=== PATIENT | female | born 1990 | race African-American/Black ===

== ENCOUNTER 2016-03-08 07:13 | Inpatient (IN) | payer MEDICARE, MEDICAID ==
[~2016-03-08] VITALS: Ht 175.3 cm; Wt 113.0 kg
[~2016-03-08 07:13] MED LIST: OLAN10TA3 PO; VITAD1000 PO
[2016-03-08] MEDS ORDERED: LOPERAMIDE HCL 2 MG CAPSULE PO ONE (07:45)
[2016-03-08] MEDS ORDERED: IBUPROFEN 600 MG TABLET PO ONE (07:45)
[2016-03-08 07:54] LABS: BASOPHILS % (AUTO) 0.5 % (0.0-2.0); EOSINOPHILS % (AUTO) 0.1 % (1.0-6.0); HEMATOCRIT 35.6 % (36-46); HEMOGLOBIN 11.8 g/dL (12.0-16.0); LYMPHOCYTES # (AUTO) 1.4 K/uL (1.0-4.8); LYMPHOCYTES % (AUTO) 9.8 % (22.0-44.0); MEAN CORPUSCULAR HEMOGLOBIN 28.6 pg (26.0-34.0); MEAN CORPUSCULAR HGB CONC 33.2 G/dL (31.0-37.0); MEAN CORPUSCULAR VOLUME 86 fL (80-100); MONOCYTES # (AUTO) 0.9 K/uL (0.1-1.0); MONOCYTES % (AUTO) 6.4 % (2.0-9.0); NEUTROPHILS # (AUTO) 12.1 K/uL (1.8-7.7); NEUTROPHILS % (AUTO) 83.2 % (40.0-70.0); PLATELET COUNT (AUTO) 446 K/uL (150-450); RED BLOOD CELL COUNT(AUTO) 4.13 MIL/uL (4.00-5.20); RED CELL DISTRIBUTION WIDTH 14.7 % (11.5-14.5); WHITE BLOOD COUNT (AUTO) 14.6 K/uL (4.5-11.0)
[2016-03-08 08:07] LABS: ANION GAP 11 mmol/L (8-16); CALCIUM, TOTAL 8.5 mg/dL (8.8-10.5); CARBON DIOXIDE 25 mmol/L (22-29); CHLORIDE 98 mmol/L (98-107); CREATININE 0.98 mg/dL (0.60-1.30); GLOMERULAR FILTR. RATE CALC > 60 mL/min (>60); POTASSIUM 3.2 mmol/L (3.5-5.1); SODIUM SERUM 134 mmol/L (136-145); UREA NITROGEN, BLOOD 6 mg/dL (7-18)
[2016-03-08 08:13] LABS: ALANINE AMINOTRANSFERASE 27 U/L (12-78); ALBUMIN 2.8 g/dL (3.4-5.0); ASPARTATE AMINOTRANSFERASE 19 U/L (15-37); BILIRUBIN,TOTAL 0.5 mg/dL (0.1-1.0); TOTAL PROTEIN, SERUM 7.6 g/dL (6.4-8.2)
[2016-03-08 08:42] LABS: APPEARANCE,URINE CLOUDY (CLEAR); GLUCOSE, URINE (UA) NEGATIVE (NEGATIVE); KETONES,URINE 40 mg/dL (NEGATIVE); LEUKOCYTE ESTERASE ,URINE TRACE (NEGATIVE); PROTEIN,URINE SEE CONFIRM (NEGATIVE)
[2016-03-08 08:50] LABS: OCCULT BLOOD,URINE SMALL (NEGATIVE); SQUAMOUS EPITHELIAL CELL,UR Many /LPF (None Seen)
[2016-03-08 08:51] LABS: COARSE GRANULAR CASTS,URINE 0-2 /LPF (None Seen); FINE GRANULAR CASTS,URINE 0-2 /LPF (None Seen); SULFOSALICYLIC ACID,URINE 1+ (Negative)
[2016-03-08] MEDS ORDERED: LORazepam 2 MG TABLET PO ONE (09:45)
[2016-03-08] MEDS ORDERED: NITROFURANTOIN/NITROFURAN MAC 100 MG CAPSULE [MACROBID] PO ONE (09:45)
[2016-03-08] MEDS ORDERED: RisperiDONE 1 MG TABLET PO ONE (09:45)
[2016-03-08] MEDS ORDERED: LORazepam 2 MG TABLET PO PRN (10:15)
[2016-03-08] MEDS ORDERED: ZOLPIDEM TARTRATE 10 MG TABLET PO PRN (10:15)
[2016-03-08] MEDS ORDERED: HALOPERIDOL 5 MG TABLET PO PRN (10:15)
[2016-03-08] MEDS ORDERED: INFLUENZA VIRUS VACCINE QVS 2016-17 (3YR+)/PF 60 MCG/0.5 ML SYRINGE IM ONE (12:00)
[2016-03-08 12:41] VITALS: BP 105/67
[2016-03-08 17:19] VITALS: BP 102/78
[2016-03-08] MEDS ORDERED: POTASSIUM CHLORIDE 20 MEQ ER TABLET PO ONE (18:15)
[2016-03-08] MEDS: OLANZapine 10 MG TABLET PO SCH (20:43)
[2016-03-09 08:02] VITALS: BP 116/68
[2016-03-09] MEDS: NITROFURANTOIN/NITROFURAN MAC 100 MG CAPSULE [MACROBID] PO SCH ×2 (08:23→17:00)
[2016-03-09 17:10] VITALS: BP 103/60
[2016-03-09] MEDS: OLANZapine 10 MG TABLET PO SCH (20:14)
[2016-03-09] MEDS ORDERED: PETROLATUM,WHITE 71 GM JELLY TP PRN (21:00)
[2016-03-09] MEDS ORDERED: ONDANSETRON HCL 4 MG TABLET PO PRN (21:00)
[2016-03-09] MEDS ORDERED: BENZOCAINE/MENTHOL LOZENGE [8 LOZENGES/PACKET] MM PRN (21:00)
[2016-03-09] MEDS ORDERED: ACETAMINOPHEN 325 MG TABLET PO PRN (21:00)
[2016-03-09] MEDS ORDERED: LOPERAMIDE HCL 2 MG CAPSULE PO PRN (21:00)
[2016-03-09] MEDS ORDERED: MAGNESIUM HYDROXIDE SUSPENSION 30 ML UDCUP PO PRN (21:00)
[2016-03-09] MEDS ORDERED: MAG HYDROX/AL HYDROX/SIMETH ES 30 ML SUSPENSION UDCUP PO PRN (21:00)
[2016-03-09] MEDS ORDERED: ALBUTEROL SULFATE HFA 90 MCG/PUFF 8 GM INHALER IH PRN (21:00)
[2016-03-09] MEDS ORDERED: BACITRACIN 28.4 GM OINTMENT TP PRN (21:00)
[2016-03-09] MEDS ORDERED: CloNIDine HCL 0.1 MG TABLET PO PRN (21:00)
[2016-03-10] MEDS: NITROFURANTOIN/NITROFURAN MAC 100 MG CAPSULE [MACROBID] PO SCH ×2 (08:20→16:11)
[2016-03-10] MEDS: CHOLECALCIFEROL (VIT D3) 1,000 UNITS TABLET PO SCH (08:20)
[2016-03-10 13:30] VITALS: BP 107/50
[2016-03-10] MEDS: OLANZapine 10 MG TABLET PO SCH (20:30)
[2016-03-11 08:02] VITALS: BP 106/53
[2016-03-11] MEDS: CHOLECALCIFEROL (VIT D3) 1,000 UNITS TABLET PO SCH (09:00)
[2016-03-11] MEDS: NITROFURANTOIN/NITROFURAN MAC 100 MG CAPSULE [MACROBID] PO SCH ×2 (09:00→16:33)
[2016-03-11] MEDS: OLANZapine 10 MG TABLET PO SCH (20:04)
[2016-03-12] MEDS: CHOLECALCIFEROL (VIT D3) 1,000 UNITS TABLET PO SCH (08:32)
[2016-03-12] MEDS: NITROFURANTOIN/NITROFURAN MAC 100 MG CAPSULE [MACROBID] PO SCH ×2 (08:32→15:50)
[2016-03-12] MEDS: OLANZapine 10 MG TABLET PO SCH (20:09)
[2016-03-13] MEDS: NITROFURANTOIN/NITROFURAN MAC 100 MG CAPSULE [MACROBID] PO SCH ×2 (08:54→16:32)
[2016-03-13] MEDS: CHOLECALCIFEROL (VIT D3) 1,000 UNITS TABLET PO SCH (08:54)
[2016-03-13 12:57] VITALS: BP 102/62
[2016-03-13 16:38] VITALS: BP 105/70
[2016-03-13] MEDS: OLANZapine 10 MG TABLET PO SCH (20:23)
[2016-03-14 08:00] VITALS: BP 118/52
[2016-03-14] MEDS: NITROFURANTOIN/NITROFURAN MAC 100 MG CAPSULE [MACROBID] PO SCH ×2 (09:48→16:24)
[2016-03-14] MEDS: CHOLECALCIFEROL (VIT D3) 1,000 UNITS TABLET PO SCH (09:48)
[2016-03-14] MEDS: IBUPROFEN 600 MG TABLET PO PRN (20:08)
[2016-03-14] MEDS: OLANZapine 10 MG TABLET PO SCH (20:28)
[2016-03-15 08:00] VITALS: BP 103/59
[2016-03-15] MEDS: CHOLECALCIFEROL (VIT D3) 1,000 UNITS TABLET PO SCH (08:02)
[2016-03-15] MEDS: NITROFURANTOIN/NITROFURAN MAC 100 MG CAPSULE [MACROBID] PO SCH ×2 (08:02→16:46)
[2016-03-15 16:50] VITALS: BP 98/50
[2016-03-15] MEDS: IBUPROFEN 600 MG TABLET PO PRN (16:53)
[2016-03-15] MEDS: OLANZapine 10 MG TABLET PO SCH (20:04)
[2016-03-16 02:34] VITALS: BP 112/76
[2016-03-16] MEDS: IBUPROFEN 600 MG TABLET PO PRN (06:19)
[2016-03-16 08:02] VITALS: BP 102/65
[2016-03-16] MEDS: CHOLECALCIFEROL (VIT D3) 1,000 UNITS TABLET PO SCH (08:22)
[2016-03-16 16:29] VITALS: BP 103/63
[2016-03-16] MEDS: OLANZapine 10 MG TABLET PO SCH (20:29)
[2016-03-17 08:00] VITALS: BP 97/72
[2016-03-17] MEDS: CHOLECALCIFEROL (VIT D3) 1,000 UNITS TABLET PO SCH (08:27)
[2016-03-17 16:40] VITALS: BP 122/76
[2016-03-17] MEDS: OLANZapine 10 MG TABLET PO SCH (20:09)
[2016-03-18] MEDS: CHOLECALCIFEROL (VIT D3) 1,000 UNITS TABLET PO SCH (08:20)
[2016-03-18 11:00] VITALS: BP 117/61
[2016-03-18 16:59] VITALS: BP 121/76
[2016-03-18] MEDS: OLANZapine 10 MG TABLET PO SCH (20:14)
[2016-03-19 01:08] VITALS: BP 127/76
[2016-03-19] MEDS: CHOLECALCIFEROL (VIT D3) 1,000 UNITS TABLET PO SCH (11:10)
[2016-03-19 17:12] VITALS: BP 116/77
[2016-03-19] MEDS: OLANZapine 10 MG TABLET PO SCH (20:47)
[2016-03-19 22:35] VITALS: BP 117/62
[2016-03-19] MEDS: IBUPROFEN 600 MG TABLET PO PRN (22:35)
[2016-03-20] MEDS: CHOLECALCIFEROL (VIT D3) 1,000 UNITS TABLET PO SCH ×2 (08:42→09:00)
[2016-03-20 16:27] VITALS: BP 104/72
[2016-03-20 19:52] VITALS: BP 108/80
[2016-03-20] MEDS: IBUPROFEN 600 MG TABLET PO PRN (20:02)
[2016-03-20] MEDS: OLANZapine 10 MG TABLET PO SCH (20:07)
[2016-03-21] MEDS: CHOLECALCIFEROL (VIT D3) 1,000 UNITS TABLET PO SCH (08:53)
== END 2016-03-21 14:54 | disposition home or self-care (01) | DRG 885 ==
LOC: EMS 07:16 → 3EX 10:59
DX: F25.0 Schizoaffective disorder, bipolar type (principal); A41.9 Sepsis, unspecified organism; N39.0 Urinary tract infection, site not specified; E87.1 Hypo-osmolality and hyponatremia; R45.851 Suicidal ideations; E55.9 Vitamin D deficiency, unspecified; E66.9 Obesity, unspecified; E87.6 Hypokalemia; F11.90 Opioid use, unspecified, uncomplicated; F15.10 Other stimulant abuse, uncomplicated; F17.210 Nicotine dependence, cigarettes, uncomplicated; F41.9 Anxiety disorder, unspecified; K59.00 Constipation, unspecified; K30 Functional dyspepsia; M19.90 Unspecified osteoarthritis, unspecified site; Z91.14 Patient's other noncompliance with medication regimen; Z88.8 Allergy status to other drugs, medicaments and biological substances; Z79.899 Other long term (current) drug therapy; Z98.890 Other specified postprocedural states; Z71.6 Tobacco abuse counseling; Z68.36 Body mass index [BMI] 36.0-36.9, adult; Z28.21 Immunization not carried out because of patient refusal
CPT/HCPCS: 87086; 99285; G0480; Q0162

== ENCOUNTER 2016-05-02 04:14 | Emergency (ER) | payer MEDICARE, OTHER ==
[~2016-05-02] VITALS: Ht 172.7 cm; Wt 113.0 kg
[2016-05-02 08:06] LABS: BASOPHILS % (AUTO) 0.5 % (0.0-2.0); EOSINOPHILS % (AUTO) 1.3 % (1.0-6.0); HEMATOCRIT 35.8 % (36-46); HEMOGLOBIN 11.7 g/dL (12.0-16.0); LYMPHOCYTES # (AUTO) 2.4 K/uL (1.0-4.8); LYMPHOCYTES % (AUTO) 27.8 % (22.0-44.0); MEAN CORPUSCULAR HEMOGLOBIN 28.1 pg (26.0-34.0); MEAN CORPUSCULAR HGB CONC 32.7 G/dL (31.0-37.0); MEAN CORPUSCULAR VOLUME 86 fL (80-100); MONOCYTES # (AUTO) 0.6 K/uL (0.1-1.0); MONOCYTES % (AUTO) 6.8 % (2.0-9.0); NEUTROPHILS # (AUTO) 5.6 K/uL (1.8-7.7); NEUTROPHILS % (AUTO) 63.6 % (40.0-70.0); PLATELET COUNT (AUTO) 444 K/uL (150-450); RED BLOOD CELL COUNT(AUTO) 4.17 MIL/uL (4.00-5.20); RED CELL DISTRIBUTION WIDTH 15.6 % (11.5-14.5); WHITE BLOOD COUNT (AUTO) 8.8 K/uL (4.5-11.0)
[2016-05-02 08:14] LABS: ANION GAP 7 mmol/L (8-16); CARBON DIOXIDE 30 mmol/L (22-29); CHLORIDE 107 mmol/L (98-107); CREATININE 0.82 mg/dL (0.60-1.30); GLOMERULAR FILTR. RATE CALC > 60 mL/min (>60); SODIUM SERUM 144 mmol/L (136-145); UREA NITROGEN, BLOOD 11 mg/dL (7-18)
[2016-05-02 08:20] LABS: ALANINE AMINOTRANSFERASE 22 U/L (12-78); ALBUMIN 3.4 g/dL (3.4-5.0); ASPARTATE AMINOTRANSFERASE 16 U/L (15-37); BILIRUBIN,TOTAL 0.2 mg/dL (0.1-1.0); TOTAL PROTEIN, SERUM 8.4 g/dL (6.4-8.2)
[2016-05-02] MEDS ORDERED: ONDANSETRON HCL 4 MG TABLET PO ONE (08:30)
[2016-05-02] MEDS ORDERED: CAMPHOR/MENTHOL/PHENOL 10 GM OINTMENT TP ONE (08:30)
[2016-05-02 09:14] LABS: INFLUENZA TYPE B NEGATIVE FOR TYPE B (NEGATIVE)
[2016-05-02 09:30] VITALS: BP 133/73
[2016-08-17] MEDS ORDERED: NALT50 PO (13:26)
== END 2016-05-02 10:13 | disposition home or self-care (01) ==
LOC: EMS 04:16
DX: J06.9 Acute upper respiratory infection, unspecified (principal); F25.9 Schizoaffective disorder, unspecified; F41.9 Anxiety disorder, unspecified; F32.9 Major depressive disorder, single episode, unspecified; F17.210 Nicotine dependence, cigarettes, uncomplicated; F11.90 Opioid use, unspecified, uncomplicated; F19.90 Other psychoactive substance use, unspecified, uncomplicated; Z88.8 Allergy status to other drugs, medicaments and biological substances
CPT/HCPCS: 36415; 80053; 85025; 87804; 99284; G0480; Q0162

== ENCOUNTER 2016-07-03 18:51 | Emergency (ER) | payer MEDICARE, OTHER ==
[~2016-07-03] VITALS: Ht 175.3 cm; Wt 118.0 kg
[2016-07-03 20:40] LABS: BASOPHILS % (AUTO) 0.5 % (0.0-2.0); EOSINOPHILS % (AUTO) 2.2 % (1.0-6.0); HEMATOCRIT 34.2 % (36-46); LYMPHOCYTES # (AUTO) 2.6 K/uL (1.0-4.8); LYMPHOCYTES % (AUTO) 26.7 % (22.0-44.0); MEAN CORPUSCULAR HEMOGLOBIN 27.6 pg (26.0-34.0); MEAN CORPUSCULAR HGB CONC 32.3 G/dL (31.0-37.0); MEAN CORPUSCULAR VOLUME 85 fL (80-100); MONOCYTES # (AUTO) 0.8 K/uL (0.1-1.0); MONOCYTES % (AUTO) 7.9 % (2.0-9.0); NEUTROPHILS # (AUTO) 6.1 K/uL (1.8-7.7); NEUTROPHILS % (AUTO) 62.7 % (40.0-70.0); PLATELET COUNT (AUTO) 412 K/uL (150-450); RED BLOOD CELL COUNT(AUTO) 4.01 MIL/uL (4.00-5.20); RED CELL DISTRIBUTION WIDTH 15.9 % (11.5-14.5); WHITE BLOOD COUNT (AUTO) 9.7 K/uL (4.5-11.0)
[2016-07-03 20:50] LABS: ANION GAP 9 mmol/L (8-16); CALCIUM, TOTAL 7.9 mg/dL (8.8-10.5); CARBON DIOXIDE 27 mmol/L (22-29); CHLORIDE 106 mmol/L (98-107); CREATININE 0.85 mg/dL (0.60-1.30); GLOMERULAR FILTR. RATE CALC > 60 mL/min (>60); POTASSIUM 3.7 mmol/L (3.5-5.1); SODIUM SERUM 142 mmol/L (136-145); UREA NITROGEN, BLOOD 8 mg/dL (7-18)
[2016-07-03 20:56] LABS: ALANINE AMINOTRANSFERASE 31 U/L (12-78); ALBUMIN 2.9 g/dL (3.4-5.0); ASPARTATE AMINOTRANSFERASE 21 U/L (15-37); BILIRUBIN,TOTAL 0.2 mg/dL (0.1-1.0); TOTAL PROTEIN, SERUM 7.3 g/dL (6.4-8.2)
[2016-07-03] MEDS ORDERED: OLANZapine 5 MG TABLET PO ONE (23:45)
[2016-07-03 23:48] VITALS: BP 132/63
== END 2016-07-03 23:54 | disposition home or self-care (01) ==
LOC: EMS 18:54
DX: F25.9 Schizoaffective disorder, unspecified (principal); F15.10 Other stimulant abuse, uncomplicated; F32.9 Major depressive disorder, single episode, unspecified; F11.90 Opioid use, unspecified, uncomplicated; F17.210 Nicotine dependence, cigarettes, uncomplicated; Z76.0 Encounter for issue of repeat prescription; Z88.8 Allergy status to other drugs, medicaments and biological substances
CPT/HCPCS: 36415; 80053; 80307; 84703; 85025; 99284; G0480

== ENCOUNTER 2016-07-04 08:29 | Inpatient (IN) | payer MEDICARE, MEDICAID ==
[~2016-07-04] VITALS: Ht 175.3 cm; Wt 121.8 kg
[2016-07-04 10:31] LABS: BASOPHILS % (AUTO) 0.4 % (0.0-2.0); EOSINOPHILS % (AUTO) 2.8 % (1.0-6.0); HEMATOCRIT 34.8 % (36-46); HEMOGLOBIN 11.2 g/dL (12.0-16.0); LYMPHOCYTES # (AUTO) 2.5 K/uL (1.0-4.8); LYMPHOCYTES % (AUTO) 29.8 % (22.0-44.0); MEAN CORPUSCULAR HEMOGLOBIN 27.6 pg (26.0-34.0); MEAN CORPUSCULAR HGB CONC 32.1 G/dL (31.0-37.0); MEAN CORPUSCULAR VOLUME 86 fL (80-100); MONOCYTES # (AUTO) 0.6 K/uL (0.1-1.0); MONOCYTES % (AUTO) 6.7 % (2.0-9.0); NEUTROPHILS % (AUTO) 60.3 % (40.0-70.0); PLATELET COUNT (AUTO) 423 K/uL (150-450); RED BLOOD CELL COUNT(AUTO) 4.05 MIL/uL (4.00-5.20); RED CELL DISTRIBUTION WIDTH 15.7 % (11.5-14.5); WHITE BLOOD COUNT (AUTO) 8.4 K/uL (4.5-11.0)
[2016-07-04 10:40] LABS: ANION GAP 5 mmol/L (8-16); CALCIUM, TOTAL 8.3 mg/dL (8.8-10.5); CARBON DIOXIDE 31 mmol/L (22-29); CHLORIDE 103 mmol/L (98-107); CREATININE 0.78 mg/dL (0.60-1.30); GLOMERULAR FILTR. RATE CALC > 60 mL/min (>60); POTASSIUM 3.8 mmol/L (3.5-5.1); SODIUM SERUM 139 mmol/L (136-145); UREA NITROGEN, BLOOD 7 mg/dL (7-18)
[2016-07-04 10:46] LABS: ALANINE AMINOTRANSFERASE 37 U/L (12-78); ASPARTATE AMINOTRANSFERASE 24 U/L (15-37); BILIRUBIN,TOTAL 0.4 mg/dL (0.1-1.0); TOTAL PROTEIN, SERUM 7.7 g/dL (6.4-8.2)
[2016-07-04] MEDS ORDERED: HALOPERIDOL 5 MG TABLET PO PRN (11:00)
[2016-07-04] MEDS ORDERED: LORazepam 2 MG TABLET PO PRN (11:00)
[2016-07-04] MEDS ORDERED: ZOLPIDEM TARTRATE 10 MG TABLET PO PRN (11:00)
[2016-07-04 16:39] VITALS: BP 110/55
[2016-07-05 00:58] VITALS: BP 92/56
[2016-07-05] MEDS ORDERED: MAGNESIUM HYDROXIDE SUSPENSION 30 ML UDCUP PO PRN (08:45)
[2016-07-05] MEDS ORDERED: BENZOCAINE/MENTHOL LOZENGE MM PRN (08:45)
[2016-07-05] MEDS ORDERED: BACITRACIN 28.4 GM OINTMENT TP PRN (08:45)
[2016-07-05] MEDS ORDERED: IBUPROFEN 600 MG TABLET PO PRN (08:45)
[2016-07-05] MEDS ORDERED: LOPERAMIDE HCL 2 MG CAPSULE PO PRN (08:45)
[2016-07-05] MEDS ORDERED: ONDANSETRON HCL 4 MG TABLET PO PRN (08:45)
[2016-07-05] MEDS ORDERED: CloNIDine HCL 0.1 MG TABLET PO PRN (08:45)
[2016-07-05] MEDS ORDERED: PETROLATUM,WHITE 71 GM JELLY TP PRN (08:45)
[2016-07-05] MEDS ORDERED: ALBUTEROL SULFATE HFA 90 MCG/PUFF 8 GM INHALER IH PRN (08:45)
[2016-07-05] MEDS ORDERED: ACETAMINOPHEN 325 MG TABLET PO PRN (08:45)
[2016-07-05] MEDS ORDERED: MAG HYDROX/AL HYDROX/SIMETH ES 30 ML SUSPENSION UDCUP PO PRN (08:45)
[2016-07-05 08:47] LABS: BASOPHILS % (AUTO) 0.7 % (0.0-2.0); EOSINOPHILS % (AUTO) 2.9 % (1.0-6.0); HEMATOCRIT 32.5 % (36-46); HEMOGLOBIN 10.4 g/dL (12.0-16.0); LYMPHOCYTES # (AUTO) 3.1 K/uL (1.0-4.8); LYMPHOCYTES % (AUTO) 41.4 % (22.0-44.0); MEAN CORPUSCULAR HEMOGLOBIN 27.8 pg (26.0-34.0); MEAN CORPUSCULAR HGB CONC 32.1 G/dL (31.0-37.0); MEAN CORPUSCULAR VOLUME 87 fL (80-100); MONOCYTES # (AUTO) 0.6 K/uL (0.1-1.0); MONOCYTES % (AUTO) 8.1 % (2.0-9.0); NEUTROPHILS # (AUTO) 3.5 K/uL (1.8-7.7); NEUTROPHILS % (AUTO) 46.9 % (40.0-70.0); PLATELET COUNT (AUTO) 393 K/uL (150-450); RED BLOOD CELL COUNT(AUTO) 3.75 MIL/uL (4.00-5.20); RED CELL DISTRIBUTION WIDTH 15.6 % (11.5-14.5); WHITE BLOOD COUNT (AUTO) 7.5 K/uL (4.5-11.0)
[2016-07-05 09:00] LABS: CHOL/HDL RATIO 2.6 (3.9-5.7)
[2016-07-05] MEDS: CHOLECALCIFEROL (VIT D3) 1,000 UNITS TABLET PO SCH (09:00)
[2016-07-05 16:18] VITALS: BP 100/61
[2016-07-05] MEDS: OLANZapine 10 MG TABLET PO SCH (21:01)
[2016-07-06 03:39] VITALS: BP 102/63
[2016-07-06] MEDS: CHOLECALCIFEROL (VIT D3) 1,000 UNITS TABLET PO SCH (08:26)
[2016-07-06 08:40] VITALS: BP 112/64
[2016-07-06 16:10] VITALS: BP 102/62
[2016-07-06] MEDS: OLANZapine 10 MG TABLET PO SCH (20:47)
[2016-07-07 08:52] VITALS: BP 122/71
[2016-07-07] MEDS: CHOLECALCIFEROL (VIT D3) 1,000 UNITS TABLET PO SCH (08:53)
[2016-07-07 16:09] VITALS: BP 100/60
== END 2016-07-07 18:00 | disposition home or self-care (01) | DRG 885 ==
LOC: EEVIPCON 08:29 → EMS 08:34 → B2X 11:13
PROVIDERS: ADMIT Psychiatry & Neurology Child & Adolescent Psychiatry; ATTEND Psychiatry & Neurology Child & Adolescent Psychiatry
DX: F25.1 Schizoaffective disorder, depressive type (principal); R45.851 Suicidal ideations; F15.20 Other stimulant dependence, uncomplicated; M19.90 Unspecified osteoarthritis, unspecified site; F32.9 Major depressive disorder, single episode, unspecified; F12.10 Cannabis abuse, uncomplicated; F41.9 Anxiety disorder, unspecified; E66.9 Obesity, unspecified; K59.00 Constipation, unspecified; E55.9 Vitamin D deficiency, unspecified; F19.10 Other psychoactive substance abuse, uncomplicated; G47.00 Insomnia, unspecified; F17.200 Nicotine dependence, unspecified, uncomplicated; Z68.39 Body mass index [BMI] 39.0-39.9, adult; Z71.51 Drug abuse counseling and surveillance of drug abuser; Z71.6 Tobacco abuse counseling; Z91.14 Patient's other noncompliance with medication regimen
CPT/HCPCS: 99285; G0480

== ENCOUNTER 2016-08-15 03:44 | Inpatient (IN) | payer MEDICARE, MEDICAID ==
[~2016-08-15] VITALS: Ht 170.2 cm; Wt 110.4 kg
[2016-08-15 04:49] LABS: BASOPHILS # (AUTO) 0.01 K/uL (0.00-0.20); BASOPHILS % (AUTO) 0.1 % (0.0-2.0); EOSINOPHILS # (AUTO) 0.06 K/uL (0.00-0.70); EOSINOPHILS % (AUTO) 0.54 % (1.0-6.0); HEMATOCRIT 33.5 % (36-46); LYMPHOCYTES # (AUTO) 2.6 K/uL (1.0-4.8); MEAN CORPUSCULAR VOLUME 85 fL (80-100); MONOCYTES # (AUTO) 0.8 K/uL (0.1-1.0); MONOCYTES % (AUTO) 6.9 % (2.0-9.0); NEUTROPHILS # (AUTO) 7.5 K/uL (1.8-7.7); NEUTROPHILS % (AUTO) 68.5 % (40.0-70.0); PLATELET COUNT (AUTO) 388 K/uL (150-450); RED BLOOD CELL COUNT(AUTO) 3.95 MIL/uL (4.00-5.20); RED CELL DISTRIBUTION WIDTH 15.9 % (11.5-14.5); WHITE BLOOD COUNT (AUTO) 10.9 K/uL (4.5-11.0)
[2016-08-15 04:58] LABS: ANION GAP 12 mmol/L (8-16); CALCIUM, TOTAL 9.1 mg/dL (8.8-10.5); CARBON DIOXIDE 23 mmol/L (22-29); CHLORIDE 103 mmol/L (98-107); CREATININE 1.05 mg/dL (0.60-1.30); GLOMERULAR FILTR. RATE CALC > 60 mL/min (>60); POTASSIUM 3.8 mmol/L (3.5-5.1); SODIUM SERUM 138 mmol/L (136-145); UREA NITROGEN, BLOOD 9 mg/dL (7-18)
[2016-08-15 05:04] LABS: ALANINE AMINOTRANSFERASE 26 U/L (12-78); ALBUMIN 3.8 g/dL (3.4-5.0); ASPARTATE AMINOTRANSFERASE 27 U/L (15-37); BILIRUBIN,TOTAL 0.6 mg/dL (0.1-1.0)
[2016-08-15] MEDS ORDERED: OLANZapine 5 MG TABLET PO ONE (05:15)
[2016-08-15] MEDS ORDERED: OLANZapine 5 MG RAPDIS TABLET PO PRN (06:00)
[2016-08-15] MEDS ORDERED: ZOLPIDEM TARTRATE 10 MG TABLET PO PRN (06:00)
[2016-08-15] MEDS ORDERED: LORazepam 2 MG TABLET PO PRN (06:00)
[2016-08-15 06:19] LABS: CHOL/HDL RATIO 2.2 (3.9-5.7); THYROID STIMULATING HORMONE 1.02 uIU/mL (0.36-3.74)
[2016-08-15] MEDS ORDERED: CloNIDine HCL 0.1 MG TABLET PO PRN (09:30)
[2016-08-15] MEDS ORDERED: BENZOCAINE/MENTHOL LOZENGE [8 LOZENGES/PACKET] MM PRN ×2 (09:30→11:45)
[2016-08-15] MEDS ORDERED: PETROLATUM,WHITE 71 GM JELLY TP PRN (09:30)
[2016-08-15] MEDS ORDERED: BACITRACIN 28.4 GM OINTMENT TP PRN (09:30)
[2016-08-15] MEDS ORDERED: MAG HYDROX/AL HYDROX/SIMETH ES 30 ML SUSPENSION UDCUP PO PRN ×2 (09:30→11:45)
[2016-08-15] MEDS ORDERED: ONDANSETRON HCL 4 MG TABLET PO PRN (09:30)
[2016-08-15] MEDS ORDERED: IBUPROFEN 600 MG TABLET PO PRN (09:30)
[2016-08-15] MEDS ORDERED: ACETAMINOPHEN 325 MG TABLET PO PRN ×2 (09:30→11:45)
[2016-08-15] MEDS ORDERED: ALBUTEROL SULFATE HFA 90 MCG/PUFF 8 GM INHALER IH PRN (09:30)
[2016-08-15] MEDS ORDERED: LOPERAMIDE HCL 2 MG CAPSULE PO PRN ×2 (09:30→11:45)
[2016-08-15] MEDS ORDERED: MAGNESIUM HYDROXIDE SUSPENSION 30 ML UDCUP PO PRN ×2 (09:30→11:45)
[2016-08-15] MEDS ORDERED: HydrOXYzine PAMOATE 50 MG CAPSULE PO PRN (11:45)
[2016-08-15] MEDS ORDERED: PROMETHAZINE HCL 25 MG TABLET PO PRN (11:45)
[2016-08-15] MEDS ORDERED: TUBERCULIN, PURIFIED PROTEIN DERIVATIVE 5 TU/0.1 ML SYG ID ONE (11:45)
[2016-08-15] MEDS ORDERED: GuaiFENesin/D-METHORPHAN [SUGAR-FREE] 200-20MG/10 ML SYRUP UDCUP PO PRN (11:45)
[2016-08-15 13:49] VITALS: BP 125/73
[2016-08-15 18:00] VITALS: BP 132/75
[2016-08-15] MEDS: THIAMINE HCL 100 MG TABLET PO SCH (21:16)
[2016-08-15] MEDS: OLANZapine 5 MG RAPDIS TABLET PO SCH (21:17)
[2016-08-16] MEDS: THIAMINE HCL 100 MG TABLET PO SCH ×2 (09:32→17:01)
[2016-08-16] MEDS: MULTIVITAMINS WITH MINERALS, THERAPEUTIC TABLET PO SCH (09:33)
[2016-08-16] MEDS: CHOLECALCIFEROL (VIT D3) 1,000 UNITS TABLET PO SCH (09:33)
[2016-08-16] MEDS: NALTREXONE HCL 50 MG TABLET PO SCH (09:33)
[2016-08-16] MEDS: FOLIC ACID 1 MG TABLET PO SCH (09:34)
[2016-08-16 09:35] VITALS: BP 112/68
[2016-08-16 16:47] VITALS: BP 110/66
[2016-08-16] MEDS: OLANZapine 5 MG RAPDIS TABLET PO SCH (21:10)
[2016-08-17] MEDS: FERROUS SULFATE 325 MG EC TABLET PO SCH (06:57)
[2016-08-17 09:21] VITALS: BP 102/56
[2016-08-17] MEDS: FOLIC ACID 1 MG TABLET PO SCH (10:58)
[2016-08-17] MEDS: CHOLECALCIFEROL (VIT D3) 1,000 UNITS TABLET PO SCH (10:58)
[2016-08-17] MEDS: THIAMINE HCL 100 MG TABLET PO SCH ×2 (10:58→17:30)
[2016-08-17] MEDS: NALTREXONE HCL 50 MG TABLET PO SCH (10:58)
[2016-08-17] MEDS: MULTIVITAMINS WITH MINERALS, THERAPEUTIC TABLET PO SCH (10:58)
[2016-08-17] MEDS ORDERED: FERR-89 PO (13:23)
[2016-08-17] MEDS ORDERED: VITAD1000 PO (13:23)
[2016-08-17] MEDS ORDERED: OLAN10TA6 PO (13:25)
[2016-08-17] MEDS ORDERED: NALT50 PO ×2 (13:26→16:18)
[2016-08-17] MEDS ORDERED: OLAN5Z PO (16:18)
[2016-08-17 20:49] VITALS: BP 94/50
[2016-08-17] MEDS ORDERED: OLANZapine 10 MG RAPDIS TABLET PO SCH (21:00)
[2016-08-18] MEDS: FERROUS SULFATE 325 MG EC TABLET PO SCH (06:54)
[2016-08-18] MEDS: MULTIVITAMINS WITH MINERALS, THERAPEUTIC TABLET PO SCH (09:40)
[2016-08-18] MEDS: CHOLECALCIFEROL (VIT D3) 1,000 UNITS TABLET PO SCH (09:40)
[2016-08-18] MEDS: FOLIC ACID 1 MG TABLET PO SCH (09:41)
[2016-08-18] MEDS: THIAMINE HCL 100 MG TABLET PO SCH (09:41)
[2016-08-18] MEDS: NALTREXONE HCL 50 MG TABLET PO SCH (09:41)
== END 2016-08-18 11:30 | disposition home or self-care (01) | DRG 750 ==
LOC: EMS 03:45 → 3EI 06:00
PROVIDERS: ADMIT Psychiatry & Neurology Psychiatry; ATTEND Psychiatry & Neurology Psychiatry
DX: F20.0 Paranoid schizophrenia (principal); Z91.19 Patient's noncompliance with other medical treatment and regimen; F15.10 Other stimulant abuse, uncomplicated; E66.9 Obesity, unspecified; F17.210 Nicotine dependence, cigarettes, uncomplicated; K59.00 Constipation, unspecified; G47.00 Insomnia, unspecified; D64.9 Anemia, unspecified; Z59.0 Homelessness; Z88.8 Allergy status to other drugs, medicaments and biological substances; Z68.38 Body mass index [BMI] 38.0-38.9, adult
CPT/HCPCS: 84443; 93005; 99285; G0480